=== PATIENT | female | born 1950 ===

== ENCOUNTER 2017-08-03 17:16 | Emergency (ER) | payer MEDICARE, OTHER ==
--- NOTE | 2017-08-03 18:22 | UC ---
Respiratory Complaint HPI - HPI Summary HPI Summary: 67 yo female with cough/runny nose <48 hrs myalgias and malaise f/c no CP or SOB - History of Current Complaint Chief Complaint: UCGeneralIllness Stated Complaint: COUGH, AND ACHES Time Seen by Provider: 08/03/17 18:18 Hx Obtained From: Patient Onset/Duration: Gradual Onset, Lasting Days Timing: Constant Severity Initially: Mild Severity Currently: Moderate Pain Intensity: 6 Pain Scale Used: 0-10 Numeric Character: Cough: Nonproductive Aggravating Factors: Nothing Alleviating Factors: Nothing Associated Signs And Symptoms: Positive: Fever, Chills, Nasal Congestion - Allergies/Home Medications Allergies/Adverse Reactions: Allergies Allergy/AdvReac Type Severity Reaction Status Date / Time Terfenadine [From Seldane] Allergy Palpitation Verified 08/03/17 18:08 s Home Medications: Home Medications Ibuprofen [Ibuprofen 200 MG] 400 mg PO ONCE 08/03/17 [History Confirmed 08/03/17 ] Pitavastatin Calcium [Livalo] 4 mg PO BEDTIME 08/03/17 [History Confirmed ] PMH/Surg Hx/FS Hx/Imm Hx Previously Healthy: Yes - Surgical History Surgical History: Yes Surgery Procedure, Year, and Place: back surgery 1999, 2001. brain surgery ( meningioma) 2005 - Family History Known Family History: Positive: Hypertension Negative: Cardiac Disease, Diabetes - Social History Alcohol Use: None Substance Use Type: None Smoking Status (MU): Never Smoked Tobacco - Immunization History Most Recent Influenza Vaccination: 2016 Review of Systems Constitutional: Fever, Chills, Fatigue Skin: Negative Eyes: Negative ENT: Nasal Discharge Respiratory: Cough Cardiovascular: Negative Gastrointestinal: Negative Genitourinary: Negative Motor: Negative Neurovascular: Negative Musculoskeletal: Myalgia Neurological: Negative Psychological: Negative Is Patient Immunocompromised?: No All Other Systems Reviewed And Are Negative: Yes Physical Exam Triage Information Reviewed: Yes Appearance: Well-Appearing, No Pain Distress, Well-Nourished Vital Signs: Initial Vital Signs Temp 99.7 F 08/03/17 18:12 Pulse 102 08/03/17 18:12 Resp 16 08/03/17 18:12 BP 131/62 08/03/17 18:12 Pulse Ox 96 08/03/17 18:12 Vital Signs Reviewed: Yes Eyes: Positive: Conjunctiva Clear ENT: Positive: Hearing grossly normal, Nasal congestion, Nasal drainage, Uvula midline. Negative: Tonsillar swelling, Tonsillar exudate, Trismus, Muffled voice, Hoarse voice, Dental tenderness, Sinus tenderness Neck: Positive: Supple, Nontender, No Lymphadenopathy Respiratory: Positive: Lungs clear, Normal breath sounds, No respiratory distress, No accessory muscle use Cardiovascular: Positive: RRR, No Murmur Musculoskeletal: Positive: No Edema Neurological: Positive: Alert Psychological Exam: Normal Skin Exam: Normal UC Diagnostic Evaluation - Laboratory Pertinent Lab Values Are: WNL Except: - FLU A (+) O2 Sat by Pulse Oximetry: 96 - normal/not hypoxic Respiratory Course/Dx - Differential Dx/Diagnosis Provider Diagnoses: influenza Discharge - Discharge Plan Condition: Stable Disposition: HOME Prescriptions: Oseltamivir CAP* [Tamiflu CAP*] 75 mg PO BID #8 cap Patient Education Materials: Influenza (ED) Referrals: Sudha Darden MD [Primary Care Provider] - 4 Days (if not better) Additional Instructions: rest fluids
[2017-08-03] MEDS ORDERED: Oseltamivir CAP* 75 MG PO ONE ×2 (18:44)
== END 2017-08-03 18:59 | disposition home or self-care (01) ==
LOC: UCEAST 17:16
DX: J11.1 Influenza due to unidentified influenza virus with other respiratory manifestations (principal)
CPT/HCPCS: 87502; 99202; A9270-GY; G0463